=== PATIENT | female | born 1975 | race Caucasian/White ===

== ENCOUNTER 2017-08-11 14:15 | Emergency (ER) | payer MEDICAID ==
[2017-08-11 14:36] VITALS: BP 132/81; PULSE 77; RESP 18; TEMP 98.6; O2SAT 100
[2017-08-11] MEDS ORDERED: SKIN ADHESIVE (DERMABOND) 1 EACH TP ONE (15:06)
--- NOTE | 2017-08-11 15:11 | EDPHY ---
H & P Time Seen by Provider: 08/11/17 14:56 HPI/ROS: HPI Chipped tooth. 41-year-old female by private vehicle with her children. This patient reports that she bit into a hard piece of food 2-3 days ago and broke the upper part of her right-sided lower lateral incisor. She complains of some on and off pain to the tooth. She denies fever. She has not had significant facial swelling. No other complaints. ROS: Constitutional: No fever, no chills. No weakness. Eyes: No discharge. No changes in vision. ENT: No sore throat. No nasal congestion or rhinorrhea. As above. Respiratory: No cough. No shortness of breath. Musculoskeletal: No back pain. No neck pain. No myalgias or arthralgias. Skin: No rashes. Neurological: No headache. Past medical history: Denies any significant past medical history. Is allergic to sulfa medications. Social history: Nonsmoker. Here with her children. No alcohol. Physical Exam: General Appearance: Alert, no distress. This patient is responding to questions appropriately and in full sentences. This patient appears well- hydrated and well-nourished. No voice changes. Eyes: Pupils equal and round no pallor or injection. No lid edema, erythema or injection. ENT, Mouth: Mucous membranes are moist. The pharyngeal tissues are unremarkable. No edema or swelling. No asymmetry suggestive of abscess. No erythema or exudates. Chipped right lower lateral incisor with exposure of dentin noted. No donte gingival swelling. No evidence of gingival abscess. No buccal mucosal swelling. No facial swelling. Neurological: Motor sensory function is grossly intact. Cranial nerves are normal. Gait is normal. Skin: Warm and dry, no rashes. Musculoskeletal: Neck is supple and nontender. No cervical, submandibular, submental lymphadenopathy. Extremities are symmetrical. All joints range without pain or impingement. Psychiatric: No agitation. No depression. Database: EKG: Imaging: Procedures: Emergency department course: We do not have calcium hydroxide paste at this facility. Dermabond was applied instead to chip area of the tooth and exposed dentin. Ibuprofen dosing for pain control as discussed. Plan will be to have the patient follow up with her dentist this week for re-evaluation and further management. She endorses. Return to emergency department precautions discussed with her. All of her questions were answered. She was discharged in good condition. Differential Diagnosis: The differential diagnosis on this patient includes but is not limited to chip tooth. Periapical abscess, donte gingival abscess, facial cellulitis unlikely. This represents a partial list of diagnoses considered. These considerations are based on history, physical exam, past history, reassessment and diagnostic testing. Smoking Status: Former smoker Constitutional: Initial Vital Signs Temperature (C) 37.0 C 08/11/17 14:35 Heart Rate 77 08/11/17 14:35 Respiratory Rate 18 08/11/17 14:35 Blood Pressure 132/81 H 08/11/17 14:35 O2 Sat (%) 100 08/11/17 14:35 O2 Delivery Mode Room Air Allergies/Adverse Reactions: sulfamethoxazole [From Bactrim] Allergy (Verified 08/11/17 14:34) trimethoprim [From Bactrim] Allergy (Verified 08/11/17 14:34) Home Medications: Medication Instructions Recorded NK [No Known Home Meds] 08/22/15 Departure - Departure Disposition: Home, Routine, Self-Care Clinical Impression: Fractured tooth Condition: Good Instructions: Acute Dental Trauma (ED) Additional Instructions: Read and follow provided instructions. Follow-up with your your dentist this week for re-evaluation and definitive management as discussed. Ibuprofen dosin mg every 6 hours with meals for the next 3 days only. Return to the emergency department for worsening pain, facial swelling, fever or other serious concerns. Referrals: [facility] [Outside] - As per Instructions
== END 2017-08-11 15:48 | disposition home or self-care (01) ==
LOC: CED 14:15
DX: K03.81 Cracked tooth (principal); Z87.891 Personal history of nicotine dependence